=== PATIENT | male | born 1955 | race Caucasian/White ===

== ENCOUNTER → 2020-09-07 | Outpatient (CLI) | payer OTHER ==
[~2020-09-07] MED LIST: ATOR20TA37 PO; CYAN-27 PO; ETAN50DI2 INJ; FOLI-17 PO; METH2.5T PO
== END | disposition home or self-care (01) ==
LOC: STAR 13:25
PROVIDERS: ATTEND Anesthesiology
DX: Z20.828 Contact with and (suspected) exposure to other viral communicable diseases (principal)
CPT/HCPCS: 87635

== ENCOUNTER 2020-09-11 10:17 | Day surgery (SDC) | payer OTHER ==
[~2020-09-11] VITALS: Ht 177.8 cm; Wt 74.0 kg
[2020-09-11] MEDS ORDERED: CHLORHEXIDINE 15 ML UDC MM STA (10:46)
[2020-09-11] MEDS ORDERED: LACTATED RINGERS 1,000 ML IV SCH (11:00)
[2020-09-11 11:10] VITALS: BP 143/92
[2020-09-11 11:59] LABS: INTERNATIONAL NORMALIZED RATIO 0.99 (0.93-1.1); PROTHROMBIN TIME 10.5 Seconds (9.6-11.5)
[2020-09-11] MEDS ORDERED: DIPHENHYDRAMINE 50 MG/ML, 1ML IVPush PRN (13:00)
[2020-09-11] MEDS ORDERED: FENTANYL PF 100 MCG/2ML IV PRN (13:00)
[2020-09-11] MEDS ORDERED: HYDROmorphone 1 MG/ML, 1ML INJ IVPush PRN (13:00)
[2020-09-11] MEDS ORDERED: hydrALAzine 20 MG/ML, 1ML IV PRN (13:00)
[2020-09-11] MEDS ORDERED: MEPERIDINE/PF 25MG/0.5ML IVPush PRN (13:00)
[2020-09-11] MEDS ORDERED: HYDROcodone/APAP 7.5-325MG/15ML UDC PO PRN (13:00)
[2020-09-11] MEDS ORDERED: HALOPERIDOL 5 MG/ML IV PRN (13:00)
[2020-09-11] MEDS ORDERED: PROMETHAZINE 25 MG/ML, 1ML IVPush PRN (13:00)
[2020-09-11] MEDS ORDERED: LABETALOL 5MG/ML, 20ML IV PRN (13:00)
[2020-09-11] MEDS ORDERED: MIDAZOLAM 1 MG/ML, 2ML ONE (13:40)
[2020-09-11] MEDS ORDERED: FENTANYL PF 250 MCG/5ML ONE (13:40)
[2020-09-11] MEDS ORDERED: BUPIVACAINE/PF 0.5% ONE (13:47)
[2020-09-11] MEDS ORDERED: THROMBIN 5,000 UNIT VIAL TP ONE ×2 (13:48→15:30)
[2020-09-11] MEDS ORDERED: EPINEPHRINE 1 MG/ML, 1ML ONE (13:48)
[2020-09-11] MEDS ORDERED: BUPIVACAINE/PF 0.25% ONE (13:48)
[2020-09-11] MEDS ORDERED: BACITRACIN 50,000 UNIT ONE (13:48)
[2020-09-11] MEDS ORDERED: VANCOMYCIN 1,000 MG ONE (13:54)
[2020-09-11] MEDS ORDERED: PROPOFOL 50 ML ONE ×2 (14:02→16:11)
[2020-09-11] MEDS ORDERED: BACITRACIN 50,000 UNIT IM ONE (15:30)
[2020-09-11] MEDS ORDERED: BUPIVACAINE/PF-EPI 0.5% 1:200K INFIL ONE (15:30)
[2020-09-11] MEDS ORDERED: PROPOFOL 10 MG/ML, 20ML ONE (16:24)
[2020-09-11] MEDS ORDERED: DEXAMETHASONE 4 MG/ML, 1ML ONE (16:24)
[2020-09-11] MEDS ORDERED: ROCURONIUM 10MG/ML,5ML ONE (16:24)
[2020-09-11] MEDS ORDERED: CEFAZOLIN 1,000 MG ONE (16:24)
[2020-09-11] MEDS ORDERED: GLYCOPYRROLATE 0.2MG/1ML, 5ML ONE (16:24)
[2020-09-11] MEDS ORDERED: NEOSTIGMINE 1 MG/ML, 10ML ONE (16:24)
[2020-09-11] MEDS ORDERED: SUCCINYLCHOLINE 20 MG/ML, 10ML ONE (16:24)
[2020-09-11] MEDS ORDERED: ONDANSETRON 2MG/ML, 2ML ONE (16:24)
[2020-09-11] MEDS ORDERED: OXYC-302 PO (16:59)
[2020-09-11] MEDS ORDERED: TIZA2TAB4 PO (16:59)
[2020-09-11] MEDS ORDERED: HYDROcodone/APAP 7.5-325MG/15ML UDC ONE (17:21)
[2020-09-11] MEDS ORDERED: METHOCARBAMOL 1,000 MG in DEXTROSE 5% 100 ML IV ONE (17:30)
== END 2020-09-11 20:00 | disposition home or self-care (01) ==
LOC: OUT 10:17
PROVIDERS: ATTEND Neurological Surgery
DX: M54.12 Radiculopathy, cervical region (principal); M48.02 Spinal stenosis, cervical region; M50.30 Other cervical disc degeneration, unspecified cervical region; M06.9 Rheumatoid arthritis, unspecified; F17.210 Nicotine dependence, cigarettes, uncomplicated; Z88.5 Allergy status to narcotic agent; Z88.8 Allergy status to other drugs, medicaments and biological substances; Z72.89 Other problems related to lifestyle; Z79.899 Other long term (current) drug therapy; Z98.890 Other specified postprocedural states
CPT/HCPCS: 36415; 63020; 63035; 72040; 85610; 85730; 95938; 95941; C1713; J0171; J0330; J0690; J1100; J2250; J2405; J2704; J2800; J3010; J3370; J7120; J2710